=== PATIENT | female | born 1945 | race Caucasian/White ===

== ENCOUNTER → 2020-07-09 12:15 | Outpatient (CLI) | payer MEDICARE, OTHER, SELFPAY ==
--- NOTE | ~2020-07-09 | MM_ITS ---
EXAMINATION: MM screening [facility] BI w marleny HISTORY: Screening mammogram TECHNIQUE: Craniocaudal and mediolateral oblique 3-D tomosynthesis images were obtained and synthetic 2-D images were generated. CAD analysis was submitted and interpreted. COMPARISON: 05/02/2019, 04/08/2018, 02/22/2017 bilateral digital screening mammogram examinations BREAST PARENCHYMAL COMPOSITION: There are scattered areas of fibroglandular density. FINDINGS: There is no evidence of suspicious mass, calcification, or architectural distortion to sugg est malignancy in either breast. There has been no suspicious interval change. IMPRESSION: 1. No mammographic evidence of malignancy. 2. Recommend routine screening mammography in one year. BI-RADS Category 1: Negative Reviewed, dictated and finalized at location A.
== END ==
PROVIDERS: PCP Internal Medicine Geriatric Medicine; Visit Provider Obstetrics & Gynecology Gynecology
DX: Z12.31 Encounter for screening mammogram for malignant neoplasm of breast (principal)
CPT/HCPCS: 77063; 77067

== ENCOUNTER 2020-07-23 10:29 | Outpatient (CLI) | payer MEDICARE, OTHER, SELFPAY ==
--- NOTE | ~2020-07-23 | XR_ITS ---
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 The procedure including the risks, benefits, and alternatives was discussed with the pat ient. Risks discussed included bleeding and infection. The patient understood the risks and agreed to proceed. The skin overlying the right hip joint was prepped and draped in usual sterile fashion. A nesthetic was administered with 1% lidocaine subcutaneously. A 22 G needle was advanced under fluoro scopic guidance into the joint. Injection of 0.6 mL of Omnipaque 240 confirmed intra-articular posit ion of the needle. Subsequently, injectate consisting of 7 mm of a 5:2 mixture of 1% lidocaine: 10 m g/mL Kenalog for a total dosage of 20 mg Kenalog was instilled. Washout of contrast was seen confirmi ng intra-articular administration. The needle was removed and the entry site was cleaned and dressed. There were no immediate complications. Fluoroscopy exposure time was 0.1 minutes. The total number of images was 1. FINDINGS: Real-time fluoroscopy demonstrates the needle in the right hip joint. Patient's pain prior to procedure:0/10. Patient's pain following the procedure: 0/10. IMPRESSION: 1. Successful right hip joint injection of local anesthetic and steroid. Reviewed, dictated and finalized at location A. [employer]OR T[employer]ETTING
== END 2020-07-23 10:30 | disposition home or self-care (01) ==
PROVIDERS: PCP Internal Medicine Geriatric Medicine; Visit Provider Orthopaedic Surgery
DX: M16.11 Unilateral primary osteoarthritis, right hip (principal)
CPT/HCPCS: 20610; 77002; J3301; Q9966

== ENCOUNTER 2021-05-09 10:20 | Emergency (ER) | payer MEDICARE, OTHER, SELFPAY ==
--- NOTE | 2021-05-09 10:24 | ED.FEMALEGU ---
HPI - Female Genitourinary General Chief complaint: Urogenital-Female Stated complaint: UTI SYMPTOMS Time Seen by Provider: 05/09/21 10:24 Source: patient and RN notes reviewed History of Present Illness HPI Narrative: Patient is a 75-year-old female who presents the urgent care with complaints of burning with urination and painful urination. Patient states that started today when she woke up this morning. States that she used to get frequent UTIs but has not had one in some time. Patient denies of hematuria, low back pain, nausea, vomiting, fever, abdominal pain. Patient has not taken anything [id number] for her symptoms. No other acute complaints. No acute distress noted. Patient aware of the plan of care. Some parts of this dictation were generated by voice recognition software and may contain typographical and/or grammatical inaccuracies. Related Data Home Medications Medication Instructions Recorded Confirmed aspirin 81 mg tablet,delayed 81 mg PO DAILY 03/12/20 01/20/21 release cholecalciferol (vitamin D3) 50 50 mcg PO DAILY 03/12/20 01/20/21 mcg (2,000 unit) tablet metoprolol succinate 25 mg 25 mg PO DAILY 03/12/20 01/20/21 tablet,extended release 24 hr multivitamin 1 cap PO DAILY 03/12/20 01/20/21 rosuvastatin 20 mg tablet 20 mg PO DAILY 03/12/20 01/20/21 calcium carbonate 600 mg calcium 600 mg PO DAILY 07/16/20 01/20/21 (1,500 mg) tablet Allergies Allergy/AdvReac Type Severity Reaction Status Date / Time tramadol Allergy Intermediate VOMITING, Verified 01/20/21 14:03 DIZZINESS adhesive tape Allergy Unknown REDNESS,OOZ Verified 01/20/21 14:03 ING codeine Allergy Unknown Unknown Verified 01/20/21 14:03 hydrocodone AdvReac Unknown NAUSEA, Verified 01/20/21 14:03 VOMITING, DIZZINESS PAIN MEDICATION - UNKNOWN Allergy Unknown UNKNOWN Uncoded 01/20/21 14:03 WHAT TYPES Review of Systems Review of Systems: CONSTITUTIONAL: Denies fever, chills, or sweats. EYES: Denies visual changes, redness, or discharge. ENT: Denies rhinorrhea, congestion, sore throat, or otalgia. CARDIOVASCULAR: Denies chest pain, palpitations, or edema. RESPIRATORY: Denies cough or dyspnea. GASTROINTESTINAL: Denies abdominal pain, nausea, vomiting, or diarrhea. GENITOURINARY: Reports of dysuria and painful urination SKIN: Denies rash or itching. MUSCULOSKELETAL: Denies back pain, joint pain, or myalgia. NEUROLOGIC: Denies headache, numbness, or weakness. All other systems reviewed are negative, except as documented in HPI. FORMERLY [facility] Past Medical History Medical History BMI 26.0-26.9,adult Heart disease Osteoarthritis of left knee Osteoarthritis of right hip Surgical History Surgical History H/O shoulder surgery rotator cuff repair Dr Tuan Feliciano History of heart artery stent X's [id number] History of left hip replacement Dr Fajardo Social History Social History Smoking status: Never smoker Alcohol intake: never Substance use: never Comments At the time of my signature, I reviewed and agree with the nursing past medical, surgical, social, and family history. There is no relevant family history pertinent to the patient complaint. Exam Narrative: GENERAL: This is a well-nourished, well-developed patient, in no apparent distress. HEAD: normocephalic, atraumatic. EYES: PERRL. Sclera clear/white. Vision is grossly intact. EARS: External ears normal NOSE: External nose normal with no obvious nasal discharge, nares without redness, no rhinorrhea. THROAT: Mucous membranes moist NECK: Neck supple CARDIOVASCULAR: Regular rate and rhythm RESPIRATORY: Clear to auscultation. Breath sounds equal bilaterally. No wheezes, rales, or rhonchi. GASTROINTESTINAL: Abdomen soft, no suprapubic tenderness, nondistended. Bowel sounds are active.
[2021-05-09 10:26] VITALS: BP 142/78; PULSE 80; RESP 16; TEMP 36.3; O2SAT 98
== END 2021-05-09 10:52 | disposition home or self-care (01) ==
PROVIDERS: Emergency Provider Nurse Practitioner Family; PCP Internal Medicine Geriatric Medicine
DX: N39.0 Urinary tract infection, site not specified (principal); I51.9 Heart disease, unspecified; M17.12 Unilateral primary osteoarthritis, left knee; M16.11 Unilateral primary osteoarthritis, right hip; Z96.642 Presence of left artificial hip joint; Z95.5 Presence of coronary angioplasty implant and graft
CPT/HCPCS: 81003; 87077; 87086; 87186; 99213; G0463

== ENCOUNTER → 2021-08-26 15:11 | Outpatient (CLI) | payer MEDICARE, OTHER, SELFPAY ==
--- NOTE | ~2021-08-26 | MM_ITS ---
EXAMINATION: MM screening [facility] BI w marleny HISTORY: Screening TECHNIQUE: Craniocaudal and mediolateral oblique 3-D tomosynthesis images were obtained and synthetic 2-D images were generated. CAD analysis was submitted and interpreted. COMPARISON: Comparison to multiple prior studies sequentially, with oldest reviewed study dated 01/2017. BREAST PARENCHYMAL COMPOSITION: There are scattered areas of fibroglandular density. FINDINGS: There is no evidence of suspicious mass, calcification, or architectural distortion to sugg est malignancy in either breast. There has been no suspicious interval change. IMPRESSION: 1. No mammographic evidence of malignancy. 2. Recommend routine screening mammography in one year. BI-RADS Category 1: Negative Reviewed, dictated and finalized at location A. R OFF
== END ==
PROVIDERS: Visit Provider Obstetrics & Gynecology Gynecology
DX: Z12.31 Encounter for screening mammogram for malignant neoplasm of breast (principal)
CPT/HCPCS: 77063; 77067

== ENCOUNTER → 2022-01-23 09:52 | Outpatient (CLI) | payer MEDICARE, OTHER, SELFPAY ==
--- NOTE | ~2022-01-23 | DEXA_ITS ---
Bone Density Report Name: MAGALI RODGERS Age: 76 Sex: Female Ethnicity: White Date of : 1945 Indication: osteopenia; height loss; inflammatory bowel disease;post menopausal Referring Provider: TAM BABIN Study: Bone densitometry was performed. Exam Date: January 23, 2022 Accession number: [id number] Bone Density: Region BMD T-score Z-score Classification AP Spine (L1-L4) 0.924 -1.1 1.4 Osteopenia Femoral Neck (Left) 0.753 -0.9 1.3 Normal Total Hip (Left) 0.994 0.4 2.3 Normal Femoral Neck (Right) 0.797 -0.5 1.7 Normal Total Hip (Right) 0.898 -0.4 1.5 Normal Total Hip Mean 0.946 0.0 1.9 Normal World Health Organization criteria for BMD impression classify patients as: Normal (T-score at or above -1.0), Osteopenia (T-score between -1.0 and -2.5), or Osteoporosis (T-score at or below -2.5). 10-year Fracture Risk(1): Major Osteoporotic Fracture 11% Hip Fracture 1.7% Reported Risk Factors: [place] (), Neck BMD=0.753, BMI=25.1 (1) FRAX(R) Version 3.08. Fracture probability calculated for an untreated patient. Fracture probability may be lower if the patient has received treatment. Previous Exams: Region Exam Age BMD T-score BMD Change BMD Change Date g/cm2 vs Baseline vs Previous AP Spine(L1-L4) 01/23/2022 76 0.924 -1.1 0.022 0.021 04/25/2018 72 0.903 -1.3 0.001 -0.008 04/09/2016 70 0.911 -1.2 0.009 0.019 01/01/2014 68 0.892 -1.4 -0.010 -0.010 01/28/2011 65 0.902 -1.3 Total Hip(Left) 01/23/2022 76 0.994 0.4 -0.044* -0.070* 04/25/2018 72 1.064 1.0 0.025 0.050* 04/09/2016 70 1.013 0.6 -0.025 0.038* 01/01/2014 68 0.975 0.3 -0.063* -0.063* 01/28/2011 65 1.038 0.8 Total Hip(Right) 01/23/2022 76 0.898 -0.4 -0.061* -0.036* 04/25/2018 72 0.934 -0.1 -0.026 -0.042* 04/09/2016 70 0.976 0.3 0.017 0.008 01/01/2014 68 0.968 0.2 0.008 0.008 01/28/2011 65 0.960 0.1 *Denotes significance at 95% confidence level, LSC for AP Spine = 0.022 g/cm2, LSC for Total Hip = 0.027 g/cm2 Clinical Information Provided by Patient: Has used the following medications: Vitamin D, Calcium, budesinide Has the following medical conditions: Inflammatory bowel diseases, cholitis Patient maximum height was 63 Me
== END ==
PROVIDERS: PCP Internal Medicine Geriatric Medicine; Visit Provider Obstetrics & Gynecology Gynecology
DX: Z78.0 Asymptomatic menopausal state (principal); M85.88 Other specified disorders of bone density and structure, other site
CPT/HCPCS: 77080

== ENCOUNTER 2022-02-25 10:20 | Emergency (ER) | payer MEDICARE, OTHER, SELFPAY ==
--- NOTE | 2022-02-25 10:21 | ED.DIZZY ---
HPI - Dizziness General Chief Complaint: Dizziness Stated Complaint: dizzy Time Seen by Provider: 02/25/22 10:22 Source: patient, family and RN notes reviewed History of Present Illness HPI Narrative: Patient is a 76-year-old female who presents the urgent care with her daughter with complaints of vertigo, recurrent dizziness. Patient states that she had a bad cold last week and is assuming that is what is causing the recurrent vertigo. Patient states that 6 years ago she had a bad stent with vertigo which was caused by an inner ear infection. Patient states she was placed on antibiotics at that time and it did improve however she had hearing loss from the infection . Patient denies of any nausea or vomiting. Denies any chest pain or shortness of breath. Patient states that symptoms started Wednesday and she has been sleeping and taking meclizine without much relief. Patient states that her cold symptoms had completely resolved prior to the onset of vertigo. No other acute complaints. No acute distress noted. Patient is able to ambulate. No neurodeficits confusion noted. Patient aware of the plan of care. Some parts of this dictation were generated by voice recognition software and may contain typographical and/or grammatical inaccuracies. Related Data Home Medications Medication Instructions Recorded Confirmed aspirin 81 mg tablet,delayed 81 mg PO DAILY 03/12/20 02/10/22 release (Adult Low Dose Aspirin) cholecalciferol (vitamin D3) 50 50 mcg PO DAILY 03/12/20 02/10/22 mcg (2,000 unit) tablet metoprolol succinate 25 mg 25 mg PO DAILY 03/12/20 02/10/22 tablet,extended release 24 hr multivitamin 1 cap PO DAILY 03/12/20 02/10/22 rosuvastatin 20 mg tablet 20 mg PO DAILY 03/12/20 02/10/22 calcium carbonate 600 mg calcium 600 mg PO DAILY 07/16/20 02/10/22 (1,500 mg) tablet (Calcium) Allergies Allergy/AdvReac Type Severity Reaction Status Date / Time tramadol Allergy Intermediate VOMITING, Verified 02/10/22 11:25 DIZZINESS adhesive tape Allergy Unknown REDNESS,OOZ Verified 02/10/22 11:25 ING codeine Allergy Unknown Unknown Verified 02/10/22 11:25 hydrocodone AdvReac Unknown NAUSEA, Verified 02/10/22 11:25 VOMITING, DIZZINESS PAIN MEDICATION - UNKNOWN Allergy Unknown UNKNOWN Uncoded 02/10/22 11:25 WHAT TYPES Review of Systems Review of Systems: CONSTITUTIONAL: Denies fever, chills, or sweats. EYES: Denies visual changes, redness, or discharge. ENT: Denies rhinorrhea, congestion, sore throat, or otalgia. CARDIOVASCULAR: Denies chest pain, palpitations, or edema. RESPIRATORY: Denies cough or dyspnea. GASTROINTESTINAL: Denies abdominal pain, nausea, vomiting, or diarrhea. GENITOURINARY: Denies dysuria or hematuria. SKIN: Denies rash or itching. MUSCULOSKELETAL: Denies back pain, joint pain, or myalgia. NEUROLOGIC: Denies headache, numbness, or weakness. PSYCHIATRIC: Reports of recurrent vertigo/dizziness All other systems reviewed are negative, except as documented in HPI. FOR[facility]LY [facility] Past Medical History Medical History (Updated 02/25/22 @ 10:41 by LAWANDA Velázquez) BMI 26.0-26.9,adult Degenerative arthritis of knee, bilateral Diverticulosis Heart disease Hypertension Osteoarthritis of right hip Surgical History Surgical History H/O shoulder surgery rotator cuff repair Dr Tuan Feliciano History of heart artery stent X's [id number] History of left hip replacement Dr Fajardo Social History Social History Smoking status: Never smoker Alcohol intake: never Substance use: never Comments At the time of my signature, I reviewed and agree with the nursing past medical, surgical, social, and family history. There is no relevant family history pertinent to the patient complaint. Exam Narrative: GENERAL: This is a well-nourished, well-developed patient, in n
[2022-02-25 10:25] VITALS: BP 126/101; PULSE 105; RESP 16; TEMP 36; O2SAT 99
[2022-02-25 10:27] VITALS: BP 126/101; PULSE 105; RESP 16; TEMP 36; O2SAT 99
[2022-02-25 10:42] VITALS: BP 132/82
== END 2022-02-25 10:47 | disposition home or self-care (01) ==
PROVIDERS: Emergency Provider Nurse Practitioner Family; PCP Internal Medicine Geriatric Medicine
DX: R42 Dizziness and giddiness (principal); M17.0 Bilateral primary osteoarthritis of knee; I10 Essential (primary) hypertension; M16.11 Unilateral primary osteoarthritis, right hip
CPT/HCPCS: 99213; G0463

== ENCOUNTER 2022-08-28 10:39 | Outpatient (CLI) | payer MEDICARE, OTHER, SELFPAY ==
--- NOTE | ~2022-08-28 | MM_ITS ---
EXAMINATION: MM screening [facility] BI w marleny HISTORY: Screening mammogram TECHNIQUE: Craniocaudal and mediolateral oblique 3-D tomosynthesis images were obtained and synthetic 2-D images were generated. CAD analysis was submitted and interpreted. COMPARISON: 08/26/2021, 07/09/2020, 05/02/2019 BREAST PARENCHYMAL COMPOSITION: The breasts are heterogeneously dense, which may obscure small masses . FINDINGS: No suspicious mass, calcification, or architectural distortion are identified in either kadi ast to suggest malignancy. There has been no suspicious interval change. IMPRESSION: 1. No mammographic evidence of malignancy. 2. Recommend routine screening mammography in one year. BI-RADS Category 1: Negative Reviewed, dictated and finalized at location A. LWORKING INSTRUCTOR
== END 2022-08-28 10:40 | disposition home or self-care (01) ==
LOC: ANHIMG 10:42
PROVIDERS: PCP Internal Medicine Geriatric Medicine; Visit Provider Obstetrics & Gynecology Gynecology
DX: Z12.31 Encounter for screening mammogram for malignant neoplasm of breast (principal)
CPT/HCPCS: 77063; 77067

== ENCOUNTER 2023-01-21 09:55 | Outpatient (CLI) | payer MEDICARE, OTHER, SELFPAY ==
[2023-01-29 21:07] LABS: Calprotectin, Stool 135 mcg/g
== END 2023-01-21 09:56 | disposition home or self-care (01) ==
LOC: ANHLAB 09:57
PROVIDERS: PCP Internal Medicine Geriatric Medicine; Visit Provider Internal Medicine Gastroenterology
DX: R19.7 Diarrhea, unspecified (principal)
CPT/HCPCS: 83993; 89055

== ENCOUNTER 2023-06-08 06:55 | Outpatient (CLI) | payer MEDICARE, OTHER, SELFPAY ==
--- NOTE | ~2023-06-08 | CT_ITS ---
Clinical Indication: Syncope CT Scan of the Chest with Contrast: Technique: Contiguous sections were acquired throughout the chest after intravenous administration of 100 cc of Omnipaque 350. Dose reduction technique was used on this scan by utilizing automated expos ure control and iterative reconstruction technique. The dose-length product (DLP) was 194.43 mGy-cm. Findings: There is no evidence of any significant mediastinal, hilar or axillary lymphadenopathy. There is no f illing defect in the pulmonary arterial tree to suggest pulmonary embolus. There is no evidence of ao rtic dissection or aneurysm. There is no evidence of pleural or pericardial effusion. The lungs are clear. No pulmonary nodules or infiltrates are noted. Images through the upper abdomen reveal no abnormalities. Impression: No evidence of pulmonary embolus, aortic dissection, or aortic aneurysm. Clear lungs. Reviewed, dictated and finalized at [facility]. Impression: No evidence of pulmonary embolus, aortic dissection, or aortic aneurysm. Clear lungs.
[2023-06-08 07:21] LABS: Estimated Glomerular Filt Rate > 60
== END 2023-06-08 06:56 | disposition home or self-care (01) ==
LOC: ANHIMG 06:59
PROVIDERS: PCP Internal Medicine Geriatric Medicine; Visit Provider Internal Medicine Geriatric Medicine
DX: R55 Syncope and collapse (principal)
CPT/HCPCS: 71275; Q9967

== ENCOUNTER 2024-01-10 09:30 | Outpatient (CLI) | payer MEDICARE, OTHER, SELFPAY ==
--- NOTE | ~2024-01-10 | MM_ITS ---
EXAMINATION: MM screening [facility] BI w marleny HISTORY: Screening mammogram TECHNIQUE: Craniocaudal and mediolateral oblique 3-D tomosynthesis images were obtained and synthetic 2-D images were generated. CAD analysis was submitted and interpreted. COMPARISON: 08/28 2022, 08/26/2021 bilateral screening mammogram examinations BREAST PARENCHYMAL COMPOSITION: The breasts are heterogeneously dense, which may obscure small masses . FINDINGS: There is no evidence of suspicious mass, calcification, or architectural distortion to sugg est malignancy in either breast. There has been no suspicious interval change. IMPRESSION: 1. No mammographic evidence of malignancy. 2. Recommend routine screening mammography in one year. BI-RADS Category 1: Negative Reviewed, dictated and finalized at location A.
== END 2024-01-10 09:31 | disposition home or self-care (01) ==
LOC: ANHIMG 09:32
PROVIDERS: PCP Internal Medicine Geriatric Medicine; Visit Provider Obstetrics & Gynecology Gynecology
DX: Z12.31 Encounter for screening mammogram for malignant neoplasm of breast (principal)
CPT/HCPCS: 77063; 77067

== ENCOUNTER 2025-08-31 08:37 | Emergency (ER) | payer MEDICARE, OTHER, SELFPAY ==
[2025-08-31] VITALS (12 sets, daily range): BP systolic 128–175; BP diastolic 82–97; PULSE 64–86; RESP 12–20; TEMP 36.4; O2SAT 94–99
--- NOTE | ~2025-08-31 | XR_ITS ---
EXAMINATION: XR chest 1V portable COMPARISON: No comparisons available. HISTORY: tia FINDINGS: The lungs are clear, no effusion. No pneumothorax. Heart is normal size. Mediastinal and hilar contours are within normal limits. Bony thorax no acute abnormality. Miscellaneous: None Impression: No acute cardiopulmonary abnormality. Reviewed, dictated and finalized at location P. [facility] CAPTAIN Impression: No acute cardiopulmonary abnormality.
--- NOTE | ~2025-08-31 | CT_ITS ---
EXAM/PROCEDURE: CTA brain carotid HISTORY: tia, new episode of rt arm weakness COMPARISON: None available. TECHNIQUE: Contrast-enhanced CT angiography of the head and neck performed. FINDINGS: On noncontrast images of the brain, diffuse volume loss and hypoattenuating white matter changes with left temporal lobe lacunar infarction which appears chronic. Small lacunar infarctions may also be present in the periventricular white matter regions, right greater than left. No intracranial mass effect or hemorrhage. Complete opacification of the left maxillary sinus and left ethmoid air cells. The remainder of the paranasal periorbital and calvarial structures unremarkable. Three-vessel left-sided arch patent. Both common carotid arteries are patent. 75% focal stenosis in the proximal right ICA with calcified plaque lesions, and 50% stenosis in the proximal left ICA. The mid and distal cervical ICAs are patent. Vertebral arteries are patent with the right vertebral artery dominant. Within the intracranial circulation, the terminal carotid arteries, as well as anterior and middle cerebral arteries are patent with moderately severe diffuse calcified plaque disease especially in the terminal carotid arteries. In the posterior circulation, the distal vertebral arteries, basilar artery and posterior cerebral arteries are patent. No discrete aneurysm, dural sinus thrombosis or AVM seen. No abnormally enhancing lesions or masses. Advanced degenerative changes in the cervical spine. IMPRESSION: 1. 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 2. No critical stenosis or occlusion seen within the intracranial arteries. 3. Extensive chronic ischemic appearing white matter changes and probably several old lacunar infarctions. Correlation with brain MRI suggested for optimal sensitivity if acute or subacute infarction is suspected. Reviewed, dictated and finalized at location A. [facility] [employer] IMPRESSION: 1. 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 2. No critical stenosis or occlusion seen within the intracranial arteries. 3. Extensive chronic ischemic appearing white matter changes and probably sever al old lacunar infarctions. Correlation with brain MRI suggested for optimal se nsitivity if acute or subacute infarction is suspected.
--- NOTE | 2025-08-31 08:45 | PC.NURSE ---
Pt arrives to room 5 via EMS. made aware of pt sx, time frame. EDP Dr. Elizalde reports no code stroke, will put additional orders in.
--- NOTE | 2025-08-31 08:46 | ECG_ITS ---
Test Date: 2025-08-31 08:48:01 Measurements Intervals [place] Rate: 62 P: 3 MD: 128 QRS: -47 QRSD: 109 T: -6 QT: 418 QTc: 426 Interpretive Statements SINUS RHYTHM LOW QRS VOLTAGE IN PRECORDIAL LEADS RIGHT BUNDLE BRANCH BLOCK LEFT ANTERIOR FASCICULAR BLOCK BASELINE ARTIFACT- I, II, AVR, V4 ABNORMAL ECG No previous ECG available for comparison Electronically Signed On 08-31-2025 09:34:27 REMOTE SENSING TECHNICIAN by Nathan Carrasco D.O.
--- NOTE | 2025-08-31 08:46 | ED.GENADULT ---
HPI - General Adult General Chief complaint: Weakness Stated complaint: weak, dizzy Time Seen by Provider: 08/31/25 08:46 History of Present Illness HPI narrative: 79-year-old female with history of recent CVA with residual left-sided weakness presents emergency department from subacute rehab after she was experiencing some right-sided weakness that has resolved. Patient states she woke up in her usual state health couple hours prior arrival here in the emergency department she started feeling dizzy and had some right-sided weakness. The dizziness and right-sided weakness is resolved she feels back to her baseline level of health and residual left-sided weakness. She denies any vertigo no trouble swallowing no double vision. She denies any chest pain or shortness of breath. No trauma. She denies any headache Related Data Home Medications ?Medication ?Instructions ?Recorded ?Confirmed ?Last Taken ?Type aspirin 81 mg tablet,delayed 81 mg PO HS 03/12/20 08/30/25 08/30/25 08:05 History release (Adult Low Dose Aspirin) budesonide 3 mg 3 mg PO QACDINNER 08/30/25 08/30/25 Unknown History capsule,delayed,extended release budesonide 3 mg 6 mg PO QAM 08/30/25 08/30/25 Unknown History capsule,delayed,extended release clopidogrel 75 mg tablet 75 mg PO DAILY 08/30/25 08/30/25 08/30/25 08:05 History ezetimibe 10 mg tablet 10 mg PO DAILY 08/30/25 08/30/25 08/30/25 08:05 History metoprolol tartrate 25 mg tablet 25 mg PO BID 08/30/25 08/30/25 Unknown History multivitamin 1 tablet PO DAILY 08/30/25 08/30/25 Unknown History Allergies Allergy/AdvReac Type Severity Reaction Status Date / Time tramadol Allergy Intermediate VOMITING, Verified 01/19/23 10:21 DIZZINESS adhesive tape Allergy Unknown REDNESS,OOZ Verified 01/19/23 10:21 ING codeine Allergy Unknown Unknown Verified 01/19/23 10:21 hydrocodone AdvReac Unknown NAUSEA, Verified 01/19/23 10:21 VOMITING, DIZZINESS PAIN MEDICATION - UNKNOWN Allergy Unknown UNKNOWN Uncoded 01/19/23 10:21 WHAT TYPES Review of Systems Review of Systems: All systems reviewed & are unremarkable except as noted in HPI and below PMFSH Past Medical History Medical History BMI 26.0-26.9,adult Degenerative arthritis of knee, bilateral Diverticulosis Heart disease Hypertension Osteoarthritis of right hip Surgical History Surgical History H/O shoulder surgery rotator cuff repair Dr Tuan Feliciano History of heart artery stent X's [id number] History of left hip replacement Dr Fajardo Social History Social History Smoking status: Never smoker Alcohol intake: never Substance use: never Lack of Transportation: No Lack of Food: Never True Current Housing: I Have Housing Concerned About Future Housing: No Difficulty Paying Gas/Electric Bills: No Difficulty Paying for Meds: No Currently Unemployed: No Education: Master's Degree or Higher Difficulty w/ Childcare or Family Care: No Living arrangements: with family Occupation/Education: retired Spiritual care concerns: No Exam Narrative: EXAMINATION OF ORGAN SYSTEMS/BODY AREAS: Constitutional: Vital signs per nursing GENERAL:[No acute distress, non-toxic appearing.] HEAD: Normal with no signs of head trauma. EYES: EOMI, conjunctiva normal ENT: Hearing grossly intact LUNGS: Nonlabored breathing. Clear to auscultation HEART: [Regular rate and rhythm] 2+ radial pulses ABD: [Soft], [nontender to palpation] EXT: Normal range of motion SKIN: [No rashes or lesions.] NEURO: Patient has full 5/5 strength flexion extension on the entire right side of her body. Cranial nerves 2-12 intact. Patient has 4/5 strength symmetrically in the left upper and lower extremity. This is her baseline deficit from her recent CVA. Cerebellar test negative. PSYCH: Normal affect Course Vital Signs Vital signs: Vital Signs Temperature 36.4 C 08/31/25 08:48 Pulse Rate 67 08/31/25 08:48 Respiratory Rate 17 08/31/25 08:48 Blood Pressure 169/92 H 08/31/25 08:48 Pulse Oximetry 97 08/31/25 08:48 Temperature 36.4 C 08/31/25 08:48 Pulse Rate 75 08/31/25 10:49 Respiratory Rate 20 08/31/25 10:49 Blood Pressure 159/93 H 08/31/25 10:49 Pulse Oximetry 97 08/31/25 10:49 [facility] Differential Diagnosis Differential Diagnosis: 79-year-old female presents with concern for TIA. This is in the setting of being on Plavix and aspirin. I am concerned for possible ischemic etiology versus hemorrhagic conversion she has less likely given lack of altered mental status or headache but I will obtain a non con head CT basic labs on the patient prior to transfer to not have Neurology currently on. Plan for evaluation after workup and treatment. Results for evaluation Patient's labs reviewed within acceptable limits. CT head negative for any evidence of hemorrhage. Patient given p.o. aspirin. Patient has been accepted for transfer at [facility] by Dr. Tuan Andrade. Bed assignment is pending. Patient updated transferred in serious condition. Medical Records I have reviewed the following patient records and this information was taken into consideration when formulating the assessment and plan.: previous labs and previous ER visits Lab Data [facility] Lab Attestation statement: I personally reviewed the patient's lab results. 08/31/25 08:56 08/31/25 08:56 Labs: Lab Results 08/31/25 08/31/25 08/31/25 Range/Units 08:42 08:56 09:55 WBC 6.1 (4.5-10.0) K/mm3 RBC 4.55 (4.2-5.4) M/mm3 Hgb 15.0 (12.0-15.0) g/dL Hct 44.8 (37.0-47.0) % MCV 98.5 (80-100) fl MCH 33.0 (26-34) pg MCHC 33.5 (32-36) g/dl RDW 12.6 (11.5-14.5) % Plt Count 195 (150-375) k/mm3 MPV 9.9 (7.4-10.4) fl Immature Gran % (Auto) 0.3 (0-0.5) % Neut % (Auto) 68.3 (45.5-73.1) % Lymph % (Auto) 15.0 L (18.3-44.2) % Gladwin % (Auto) 11.3 H (2.6-8.5) % Eos % (Auto) 4.6 H (0-4.4) % Baso % (Auto) 0.5 (0.2-1.2) % Lymph # (Auto) 0.92 (0.9-3.2) K/mm3 Gladwin # (Auto) 0.7 H (0.1-0.6) K/mm3 Eos # (Auto) 0.3 (0-0.3) K/mm3 Baso # (Auto) 0.0 (0.0-0.1) K/mm3 Abs Immat Gran (auto) 0.02 (0.00-0.031) K/mm3 Absolute Neuts (auto) 4.2 (1.3-6.7) K/mm3 Absolute Nucleated RBC 0.000 (0.0-0.012) K/mm3 Nucleated RBC % 0.0 (0.0-0.2) % PT 12.8 (11.1-14.7) Seconds INR 1.0 Sodium 138 (137-145) mmol/L Potassium 3.8 (3.4-5.0) mmol/L Chloride 109 H (98-107) mmol/L Carbon Dioxide 25 (22-30) mmol/L Anion Gap 4 (4-12) mmol/L BUN 21 H (7-17) mg/dL Creatinine 0.83 (0.7-1.0) mg/dL Estim Creat Clear Calc 39 ml/min Estimated GFR > 60 (59 - ) Glucose 97 (65-110) mg/dL POC Capillary Glucose 94 (65-105) mg/dl Calcium 9.4 (8.4-10.2) mg/dL Total Bilirubin 0.8 (0.2-1.3) mg/dL AST 63 H (14-36) U/L ALT 41 H (6-35) U/L Alkaline Phosphatase 85 (38-126) U/L Troponin I < 0.012 (0.000-0.034) ng/mL Total Protein 7.1 (6.3-8.2) g/dL Albumin 3.9 (3.5-5.1) g/dL Urine Color Yellow (Yellow) Urine Appearance Clear (Clear) Urine pH 6.5 (5.0-9.0) Ur Specific Hobgood 1.014 (1.001-1.035) Urine Protein Negative (Negative) mg/dL Urine Glucose (UA) Negative (Negative) mg/dL Urine Ketones Negative (Negative) mg/dL Ur Blood (Man) Negative (Negative) Urine Nitrate Negative (Negative) Urine Bilirubin Negative (Negative) Urine Urobilinogen 0.2 (<2.0) mg/dL Leukocyte Esterase Rfl Negative (Negative) WILMA/UL Urine Opiates Screen Negative (Negative) Urine Methadone Screen Negative (Negative) Ur Barbiturates Screen Negative (Negative) Ur Phencyclidine Scrn Negative (Negative) Ur Amphetamine Screen Negative (Negative) U Benzodiazepines Scrn Negative (Negative) Urine Cocaine Screen Negative (Negative) U Cannabinoids Screen Negative (Negative) Ethyl Alcohol < 10 (<10) mg/dL Imaging Data Attestation: I personally reviewed and interpreted this imaging study as follows: My impression: Head CT shows no evidence of intracranial bleed or mass. There is significant stenosis ICAs bilaterally on the CTA. Otherwise negative acute Radiologist's impression: ITS Impressions Chest X-Ray 08/31/25 09:44 Impression: No acute cardiopulmonary abnormality. Head/Neck CTA 08/31/25 10:17 IMPRESSION: 1. 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 2. No critical stenosis or occlusion seen within the intracranial arteries. 3. Extensive chronic ischemic appearing white matter changes and probably several old lacunar infarctions. Correlation with brain MRI suggested for optimal sensitivity if acute or subacute infarction is suspected. ECG Data EKG #1: Attestation: I personally reviewed and interpreted this ECG as follows: Interpretation: 12 lead EKG shows normal sinus rhythm at 62 beats per minute. Right bundle branch block. Otherwise no evidence of ST-T segment elevation or depression. Normal axis. Overall impression abnormal EKG. Discharge Plan Discharge Clinical Impression: Brain TIA Patient Disposition: Acute Care [facility] Condition: Serious Patient Language: Serbian Prescriptions: No Action aspirin [Adult Low Dose Aspirin] 81 mg tablet,delayed release (DR/EC) 81 mg PO HS clopidogrel 75 mg tablet 75 mg PO DAILY Rx Instructions: x17 days ezetimibe 10 mg tablet 10 mg PO DAILY metoprolol tartrate 25 mg tablet 25 mg PO BID multivitamin Tablet 1 tablet PO DAILY budesonide 3 mg capsule,delayed,extend.release 3 mg PO QACDINNER budesonide 3 mg capsule,delayed,extend.release 6 mg PO QAM Follow-up/Referrals: Param,Tuan Davis MD [Primary Care Provider, Unknown]
[2025-08-31 09:09] LABS: Hematocrit 44.8 % (37.0-47.0); Hemoglobin 15.0 g/dL (12.0-15.0); Immature Granulocyte Percent A 0.3 % (0-0.5); Lymphocytes Absolute Auto 0.92 K/mm3 (0.9-3.2); Mean Corpuscular HGB Conc 33.5 g/dl (32-36); Mean Corpuscular Hemoglobin 33.0 pg (26-34); Mean Corpuscular Volume 98.5 fl (80-100); Nucleated Red Blood Cells Absolute Auto 0.000 K/mm3 (0.0-0.012); Nucleated Red Blood Cells Perc 0.0 % (0.0-0.2); Platelet Count Result 195 k/mm3 (150-375); Red Blood Count 4.55 M/mm3 (4.2-5.4); White Blood Count 6.1 K/mm3 (4.5-10.0)
[2025-08-31 09:20] LABS: INR 1.0; Prothrombin Time 12.8 Seconds (11.1-14.7)
[2025-08-31 09:46] LABS: Alanine Aminotransferase 41 U/L (6-35); Albumin Level 3.9 g/dL (3.5-5.1); Alkaline Phosphatase 85 U/L (38-126); Anion Gap 4 mmol/L (4-12); Aspartate Amino Transferase 63 U/L (14-36); Bilirubin,Total 0.8 mg/dL (0.2-1.3); Blood Urea Nitrogen 21 mg/dL (7-17); Calcium 9.4 mg/dL (8.4-10.2); Carbon Dioxide 25 mmol/L (22-30); Chloride 109 mmol/L (98-107); Estimated CRCL calculation 39 ml/min; Estimated Glomerular Filt Rate > 60; Glucose 97 mg/dL (65-110); Potassium 3.8 mmol/L (3.4-5.0); Sodium 138 mmol/L (137-145); Total Protein 7.1 g/dL (6.3-8.2)
[2025-08-31 09:57] LABS: Troponin I < 0.012 ng/mL (0.000-0.034)
[2025-08-31 10:03] LABS: Add Urine Microscopic? NO; Appearance Urine Clear (Clear); Glucose Urine UA Negative (Negative); Leukocyte Esterase Ur Negative LEU/UL (Negative); Nitrate Urine Negative (Negative); Specific Grav Ur 1.014 (1.001-1.035)
[2025-08-31 10:38] LABS: Cannabinoid Screen Urine Negative (Negative)
[2025-08-31] MEDS: ASPIRIN 325 MG TABLET PO (10:49)
--- NOTE | 2025-08-31 15:16 | PC.NURSE ---
Pt requesting something to eat/drink. made aware. VORB for regular diet. Pt provided with sandwich, pretzels, and diet cola per request.
--- NOTE | 2025-08-31 15:32 | PC.NURSE ---
Radha with [facility] transfer center called stating pt was accepted to [facility] by Dr. Soto to bed [id number]. Report to be called to [phone]
== END 2025-08-31 17:48 | disposition short-term general hospital (02) ==
PROVIDERS: Emergency Provider Emergency Medicine; PCP Internal Medicine Geriatric Medicine
DX: G45.9 Transient cerebral ischemic attack, unspecified (principal); I69.954 Hemiplegia and hemiparesis following unspecified cerebrovascular disease affecting left non-dominant side; I11.9 Hypertensive heart disease without heart failure; M17.0 Bilateral primary osteoarthritis of knee; M16.11 Unilateral primary osteoarthritis, right hip; Z95.5 Presence of coronary angioplasty implant and graft; Z96.642 Presence of left artificial hip joint; Z79.02 Long term (current) use of antithrombotics/antiplatelets; Z79.82 Long term (current) use of aspirin; Z79.899 Other long term (current) drug therapy; I45.2 Bifascicular block
CPT/HCPCS: 36415; 70496; 70498; 71045; 80053; 80307; 81003; 82077; 82948; 84484; 85025; 85610; 93005; 99285; A9270; Q9967